=== PATIENT | female | born 1970 | race African-American/Black ===

== ENCOUNTER 2024-12-18 05:55 | Emergency (ER) | payer BC, SELFPAY ==
--- NOTE | ~2024-12-18 | XR_ITS ---
Portable chest x-ray Comparison: None Clinical History: Dyspnea Findings: Possible minimal bibasilar interstitial edema. No other consolidation or pleural effusion. Cardiomediastinal silhouette is unremarkable. Bones and soft tissues are unremarkable. Impression: Possible minimal bibasilar interstitial edema. Reviewed, dictated and finalized at [facility]. Impression: Possible minimal bibasilar interstitial edema.
--- NOTE | 2024-12-18 05:56 | ECG_ITS ---
Test Date: 2024-12-18 06:14:24 Measurements Intervals [place] Rate: 104 P: 62 AR: 178 QRS: 73 QRSD: 85 T: 71 QT: 336 QTc: 442 Interpretive Statements SINUS TACHYCARDIA MINIMAL VOLTAGE CRITERIA FOR LVH, CONSIDER NORMAL VARIANT [MEETS CRITERIA IN ONE OF: R(aVL), S(V1), R(V5), R(V5/V6)+S(V1)] NONSPECIFIC ST & T-WAVE ABNORMALITY ABNORMAL RHYTHM ECG No previous ECG available for comparison Electronically Signed On 12-18-2024 11:37:11 CDT by Alexander Masters M.D.
[2024-12-18 06:04] VITALS: PULSE 101; RESP 24; TEMP 37.6; O2SAT 97
[2024-12-18 06:07] VITALS: BP 159/129
--- NOTE | 2024-12-18 06:18 | ED_ITS ---
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 Feels like she can not catch her breath especially when she is walking around. <Aminah Momin MD - Last Filed: 12/18/24 06:39> Related Data Allergies/Adverse Reactions: Allergies Allergy/AdvReac Type Severity Reaction Status Date / Time Penicillins Allergy Severe Anaphylaxis Verified 12/18/24 05:56 morphine Allergy Intermediate Rash Verified 12/18/24 06:08 <Aminah Momin MD - Last Filed: 12/18/24 06:39> Review of Systems 2 Review of Systems: All systems reviewed & are unremarkable except as noted in HPI and below <Aminah Momin MD - Last Filed: 12/18/24 06:39> Exam 2 Narrative: EXAMINATION OF ORGAN SYSTEMS/BODY AREAS: Constitutional: Vital signs per nursing GENERAL: Dyspneic while walking HEAD: Normal with no signs of head trauma. EYES: EOMI, conjunctiva normal ENT: Hearing grossly intact LUNGS: Becomes slightly dyspneic while walking, can speak in full sentences but panting afterwards, some end-expiratory wheezing and diminished lung sounds bilaterally. HEART: [Regular rate and rhythm] ABD: [Soft], [nontender to palpation] EXT: Normal range of motion SKIN: [No rashes or lesions.] NEURO: [Alert and oriented x 3. No gross focal sensory or strength deficits.] PSYCH: Normal affect <Aminah Momin MD - Last Filed: 12/18/24 06:39> Course Vital Signs Vital signs: Vital Signs Temperature 99.6 F 12/18/24 06:04 Pulse Rate 101 H 12/18/24 06:04 Respiratory Rate 24 H 12/18/24 06:04 Pulse Oximetry 97 12/18/24 06:04 Oxygen Delivery Room Air 12/18/24 06:04 Temperature 97.9 F 12/18/24 07:34 Pulse Rate 110 H 12/18/24 07:34 Respiratory Rate 20 12/18/24 07:34 Blood Pressure 155/93 H 12/18/24 07:34 Pulse Oximetry 100 12/18/24 07:44 Oxygen Delivery Room Air 12/18/24 07:44 <Aminah Momin MD - Last Filed: 12/18/24 06:39> Vital Signs Temperature 99.6 F 12/18/24 06:04 Pulse Rate 101 H 12/18/24 06:04 Respiratory Rate 24 H 12/18/24 06:04 Pulse Oximetry 97 12/18/24 06:04 Oxygen Delivery Room Air 12/18/24 06:04 Temperature 97.9 F 12/18/24 07:34 Pulse Rate 110 H 12/18/24 07:34 Respiratory Rate 20 12/18/24 07:34 Blood Pressure 155/93 H 12/18/24 07:34 Pulse Oximetry 100 12/18/24 07:44 Oxygen Delivery Room Air 12/18/24 07:44 <Janna Bacon III, DO - Last Filed: 12/18/24 17:01> MDM - SOB/Dyspnea MDM Narrative Medical decision making narrative: ED COURSE AND MEDICAL DECISION MAKING: This 54 year old patient presents with symptoms most suggestive of viral upper respiratory tract infection. She does appear out of breath here, with slightly diminished lung sounds and expiratory wheezing bilaterally. Does have history of potential asthma/COPD and was prior smoker. Patient is treated symptomatically with Tylenol, breathing treatments. Steroids given. Will obtain swabs and chest x-ray. EKG on my independent interpretation limited by patient being unable to sit still due to coughing, does have sinus tachycardia with rate 104, OR 178, QRS 85, QTC 442, normal axis, no obvious ST elevations or depressions or signs of acute arrhythmia or ischemia CXR on my independent interpretation does not show any obvious consolidation, pneumothorax, or cardiomegaly. Will plan for likely discharge after finishing breathing treatments, if patient is feeling better. Signed out to home ER physician pending re-evaluation and labs. <Aminah Momin MD - Last Filed: 12/18/24 06:39> ED COURSE AND MEDICAL DECISION MAKING: This 54 year old patient presents with symptoms most suggestive of viral upper respiratory tract infection. She does appear out of breath here, with slightly diminished lung sounds and expiratory wheezing bilaterally. Does have history of potential asthma/COPD and was prior smoker. Patient is treated symptomatically with Tylenol, breathing treatments. Steroids given. Will obtain swabs and chest x-ray. EKG on my independent interpretation limited by patient being unable to sit still due to coughing, does have sinus tachycardia with rate 104, OR 178, QRS 85, QTC 442, normal axis, no obvious ST elevations or depressions or signs of acute arrhythmia or ischemia CXR on my independent interpretation does not show any obvious consolidation, pneumothorax, or cardiomegaly. Will plan for likely discharge after finishing breathing treatments, if patient is feeling better. Signed out to home ER physician pending re-evaluation and labs. work up unremarkable other than rsv pos pt better after ativan. home on prednisone and ativan <Janna Bacon III, DO - Last Filed: 12/18/24 17:01> Lab Data Result diagrams: 12/18/24 07:06 12/18/24 07:06 <Aminah Momin MD - Last Filed: 12/18/24 06:39> Labs: Lab Results 12/18/24 12/18/24 Range/Units 06:10 07:06 WBC 8.9 (4.5-10.0) K/mm3 RBC 4.65 (4.2-5.4) M/mm3 Hgb 16.1 H (12.0-15.0) g/dL Hct 48.4 H (37.0-47.0) % MCV 104.1 H (80-100) fl MCH 34.6 H (26-34) pg MCHC 33.3 (32-36) g/dl RDW 13.0 (11.5-14.5) % Plt Count 226 (150-375) k/mm3 MPV 9.8 (7.4-10.4) fl Immature Gran % (Auto) 0.6 H (0-0.5) % Neut % (Auto) 76.0 H (45.5-73.1) % Lymph % (Auto) 14.0 L (18.3-44.2) % Butts % (Auto) 8.5 (2.6-8.5) % Eos % (Auto) 0.3 (0-4.4) % Baso % (Auto) 0.6 (0.2-1.2) % Lymph # (Auto) 1.25 (0.9-3.2) K/mm3 Butts # (Auto) 0.8 H (0.1-0.6) K/mm3 Eos # (Auto) 0.0 (0-0.3) K/mm3 Baso # (Auto) 0.1 (0.0-0.1) K/mm3 Abs Immat Gran (auto) 0.05 H (0.00-0.031) K/mm3 Absolute Neuts (auto) 6.8 H (1.3-6.7) K/mm3 Absolute Nucleated RBC 0.000 (0.0-0.012) K/mm3 Nucleated RBC % 0.0 (0.0-0.2) % Sodium 138 (137-145) mmol/L Potassium 3.6 (3.4-5.0) mmol/L Chloride 100 (98-107) mmol/L Carbon Dioxide 30 (22-30) mmol/L Anion Gap 8 (4-12) mmol/L BUN 14 (7-17) mg/dL Creatinine 0.75 (0.7-1.0) mg/dL Estim Creat Clear Calc 99 ml/min Estimated GFR > 60 (59 - ) Glucose 148 H (65-110) mg/dL Calcium 9.9 (8.4-10.2) mg/dL Influenza A (RT-PCR) Negative (Negative) Influenza B (RT-PCR) Negative (Negative) RSV (RT-PCR) Positive A (Negative) SARS-CoV-2 RNA (RT-PCR) Negative (Negative) <Aminah Momin MD - Last Filed: 12/18/24 06:39> Lab Results 12/18/24 12/18/24 Range/Units 06:10 07:06 WBC 8.9 (4.5-10.0) K/mm3 RBC 4.65 (4.2-5.4) M/mm3 Hgb 16.1 H (12.0-15.0) g/dL Hct 48.4 H (37.0-47.0) % MCV 104.1 H (80-100) fl MCH 34.6 H (26-34) pg MCHC 33.3 (32-36) g/dl RDW 13.0 (11.5-14.5) % Plt Count 226 (150-375) k/mm3 MPV 9.8 (7.4-10.4) fl Immature Gran % (Auto) 0.6 H (0-0.5) % Neut % (Auto) 76.0 H (45.5-73.1) % Lymph % (Auto) 14.0 L (18.3-44.2) % Butts % (Auto) 8.5 (2.6-8.5) % Eos % (Auto) 0.3 (0-4.4) % Baso % (Auto) 0.6 (0.2-1.2) % Lymph # (Auto) 1.25 (0.9-3.2) K/mm3 Butts # (Auto) 0.8 H (0.1-0.6) K/mm3 Eos # (Auto) 0.0 (0-0.3) K/mm3 Baso # (Auto) 0.1 (0.0-0.1) K/mm3 Abs Immat Gran (auto) 0.05 H (0.00-0.031) K/mm3 Absolute Neuts (auto) 6.8 H (1.3-6.7) K/mm3 Absolute Nucleated RBC 0.000 (0.0-0.012) K/mm3 Nucleated RBC % 0.0 (0.0-0.2) % Sodium 138 (137-145) mmol/L Potassium 3.6 (3.4-5.0) mmol/L Chloride 100 (98-107) mmol/L Carbon Dioxide 30 (22-30) mmol/L Anion Gap 8 (4-12) mmol/L BUN 14 (7-17) mg/dL Creatinine 0.75 (0.7-1.0) mg/dL Estim Creat Clear Calc 99 ml/min Estimated GFR > 60 (59 - ) Glucose 148 H (65-110) mg/dL Calcium 9.9 (8.4-10.2) mg/dL Influenza A (RT-PCR) Negative (Negative) Influenza B (RT-PCR) Negative (Negative) RSV (RT-PCR) Positive A (Negative) SARS-CoV-2 RNA (RT-PCR) Negative (Negative) <Janna Noe Bacon III, DO - Last Filed: 12/18/24 17:01> Discharge Plan Discharge Clinical Impression: Acute bronchitis, Upper respiratory infection, Acute bronchitis due to respiratory syncytial virus <Aminah Momin MD - Last Filed: 12/18/24 06:39> Patient Disposition: Home, Self-Care <Aminah Momin MD - Last Filed: 12/18/24 06:39> Condition: Stable <Aminah Momin MD - Last Filed: 12/18/24 06:39> Instructions: Antibiotic Form, Acute Bronchitis (ED), RSV (Respiratory Syncytial Virus) Infection (ED) <Aminah Momin MD - Last Filed: 12/18/24 06:39> Additional Instructions: 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 <Aminah Momin MD - Last Filed: 12/18/24 06:39> Patient Language: [place]i <Aminah Momin MD - Last Filed: 12/18/24 06:39> Prescriptions: New prednisone 20 mg tablet 40 mg PO DAILY 5 Days Qty: 10 0RF acetaminophen [Tylenol Extra Strength] 500 mg tablet 1,000 mg PO Q6H PRN (Reason: pain) Qty: 50 0RF albuterol sulfate 90 mcg/actuation HFA aerosol inhaler 2 puff inhalation QID PRN (Reason: shortness of breath or wheezing) Qty: 8.5 0RF fluticasone propionate [Allergy Relief (fluticasone)] 50 mcg/actuation spray,suspension 1 spray intranasal DAILY Qty: 16 0RF Rx Instructions: administer into each nostril prednisone 50 mg tablet 50 mg PO DAILY Qty: 4 0RF lorazepam [Ativan] 1 mg tablet 1 mg PO BID PRN (Reason: anxiety) Qty: 7 0RF <Aminah Momin MD - Last Filed: 12/18/24 06:39> Follow-up/Referrals: PHYSICIAN NOT ON STAFF,NONSTAFF [Non-Staff] - <Aminah Momin MD - Last Filed: 12/18/24 06:39> Stand Alone Forms: Work/School Release IP <Aminah Momin MD - Last Filed: 12/18/24 06:39>
[2024-12-18] MEDS: ALBUTEROL SULFATE NEB 2.5 MG/3 ML INH 10 MG INHALATION (06:19)
[2024-12-18] MEDS: predniSONE 20 MG TABLET 40 MG PO (06:22)
[2024-12-18] MEDS: ACETAMINOPHEN 325 MG TABLET 650 MG PO (06:29)
[2024-12-18 06:56] LABS: Influenza A QL RT-PCR Negative (Negative); Influenza B QL RT-PCR Negative (Negative); RSV RNA, RT-PCR Positive (Negative); SARS-CoV-2 RNA PCR Negative (Negative)
[2024-12-18 07:15] LABS: Basophils Absolute Auto 0.1 K/mm3 (0.0-0.1); Basophils Percent Auto 0.6 % (0.2-1.2); Eosinophils Percent Auto 0.3 % (0-4.4); Hematocrit 48.4 % (37.0-47.0); Hemoglobin 16.1 g/dL (12.0-15.0); Immature Granulocyte Absolute 0.05 K/mm3 (0.00-0.031); Immature Granulocyte Percent A 0.6 % (0-0.5); Lymphocytes Absolute Auto 1.25 K/mm3 (0.9-3.2); Mean Corpuscular HGB Conc 33.3 g/dl (32-36); Mean Corpuscular Hemoglobin 34.6 pg (26-34); Mean Corpuscular Volume 104.1 fl (80-100); Mean Platelet Volume 9.8 fl (7.4-10.4); Monocytes Absolute Auto 0.8 K/mm3 (0.1-0.6); Monocytes Percent Auto 8.5 % (2.6-8.5); Neutrophils Absolute Auto 6.8 K/mm3 (1.3-6.7); Platelet Count Result 226 k/mm3 (150-375); Red Blood Count 4.65 M/mm3 (4.2-5.4); White Blood Count 8.9 K/mm3 (4.5-10.0)
[2024-12-18 07:29] LABS: Anion Gap 8 mmol/L (4-12); Blood Urea Nitrogen 14 mg/dL (7-17); Calcium 9.9 mg/dL (8.4-10.2); Carbon Dioxide 30 mmol/L (22-30); Chloride 100 mmol/L (98-107); Estimated CRCL calculation 99 ml/min; Estimated Glomerular Filt Rate > 60; Glucose 148 mg/dL (65-110); Potassium 3.6 mmol/L (3.4-5.0); Sodium 138 mmol/L (137-145)
[2024-12-18] MEDS: LORazepam INJ (*CRX) 2 MG/ML VIAL 0.5 MG IV PUSH (07:30)
[2024-12-18 07:34] VITALS: BP 155/93; PULSE 110; RESP 20; TEMP 36.6; O2SAT 99
[2024-12-18 07:44] VITALS: O2SAT 100
--- NOTE | 2024-12-18 07:47 | PC.NURSE ---
Assumed care of pt. Pt anxious crying, on the phone with family. Pt medicated per orders. Reviewed with pt treatment received, instructed to take slow deep breathes while receiving resp treatment. Repositioned for comfort.
--- OUTSIDE RECORDS SUMMARY | 2024-12-18 07:59 | XMS_ITS | Clinical Summary ---
Author Organization [facility] Address [address] [place] [id number] Care Team Providers Care Microstrategy Reports Developer Name Role Phone Boyd Sarabia MD Primary Care Provider [phone] Allergies Active Allergy Reactions Criticality Noted Date Comments Morphine ANAPHYLAXIS High 11/18/2023 Penicillins ANAPHYLAXIS High 11/18/2023 Medications Medication Sig Dispensed Refills Start Date End Date Status ALPRAZolam (Xanax) 0.25 MG tablet Take 2 tablets by mouth 3 times daily as needed for Anxiety. 21 tablet 11/19/2023 Active amLODIPine (NORVASC) 10 MG tablet Take 1 tablet by mouth daily. 60 tablet 11/19/2023 Active lisinopril (ZESTRIL) 20 MG tablet Take 1 tablet by mouth daily. 60 tablet 11/19/2023 Active metoPROLOL tartrate (LOPRESSOR) 50 MG tablet Take 1 tablet by mouth in the morning and 1 tablet in the evening. 120 tablet 11/19/2023 Active pantoprazole (PROTONIX) 40 MG tablet Take 1 tablet by mouth daily. 60 tablet 11/19/2023 Active ALPRAZolam (XANAX) 0.5 MG tablet Take 0.5 mg by mouth. 07/12/2023 Active amLODIPine (NORVASC) 10 MG tablet Take 10 mg by mouth daily. 07/12/2023 Active lisinopril (ZESTRIL) 20 MG tablet Take 20 mg by mouth daily. 07/25/2023 Active metoPROLOL tartrate (LOPRESSOR) 50 MG tablet Take 50 mg by mouth in the morning and 50 mg in the evening. 07/25/2023 Active pantoprazole (PROTONIX) 40 MG tablet Take 40 mg by mouth daily. 07/08/2023 Active amLODIPine (NORVASC) 5 MG tablet Take 5 mg by mouth daily. 07/08/2023 Active hydrALAZINE (APRESOLINE) 10 MG tablet Take 10 mg by mouth. 07/25/2023 Active Surgical History Surgery Date Site/Laterality Comments HYSTERECTOMY Medical History Medical History Date Comments Essential (primary) hypertension Anxiety Ulcerative colitis (CMD) Fibroids Social History Tobacco Use Types Packs/Day Years Used Date Smoking Tobacco: Former Cigarettes Tobacco Cessation:Counseling Given: Not Answered Alcohol Use Standard Drinks/Week Comments Yes 0 (1 standard drink = 0.6 oz pur e alcohol) Inadequate Housing Answer Date Recorded Social Determinants: Housing (Overall Score Help er) 0 11/19/2023 Interpersonal Safety Answer Date Record ed How often does anyone, ahmet maher family and friends, physically hurt you? Never 11/19/2023 How often does anyone, ahmet maher family and friends, insult or talk down to you? Never 11/19/2023 How often does anyone, ahmet maher family and friends, threaten you with harm? Never 11/19/2023 How often does anyone, ahmte maher family and friends, scream or curse at you? Never 11/19/2023 Sex and Gender Information Value Date Recorded Sex Assigned at Not on file Gender Identity Not on file Sexual Orientation Not on file Job Start Date Occupation Industry Not on file Not on file Not on file Obstetrics History Last Filed Vital Signs Vital Sign Reading Time Taken Comments Blood Pressure 182/140 11/19/2023 11:28 AM SPECIAL DUTY NURSE Pulse 73 11/19/2023 11:28 AM SPECIAL DUTY NURSE Temperature 36.8 C (98.2 F) 11/18/2023 8:47 PM SPECIAL DUTY NURSE Respiratory Rate 20 11/19/2023 11:28 AM SPECIAL DUTY NURSE Oxygen Saturation 100% 11/19/2023 11:28 AM SPECIAL DUTY NURSE Inhaled Oxygen Concentration - - Weight - - Height - - Body Mass Index - - Plan of Treatment Health Maintenance Due Date Last Done Comments Depression Screening 1983 DTaP/Tdap/Td Vaccine (1 - Tdap) 1990 Hepatitis B Vaccine (1 of 3 - 19+ 3-dose series) 1990 Pneumococcal Vaccine 50+ (1 of 2 - PCV) 1990 Breast Cancer Screening 2011 CT Colonography 2016 Cologuard 2016 Colonoscopy 2016 Colorectal Cancer Screening 2016 Fecal Occult Blood 2016 Sigmoidoscopy 2016 Shingles Vaccine (1 of 2) 2021 COVID-19 Vaccine (2023-2 5 season) 2024 Influenza Vaccine (#1) 2024 HPV Vaccine Aged Out No longer eligi ble based on patient's age to complete this topic Hepatitis A Vaccine Aged Out No longe r eligible based on patient's age to complete this topic Meningococcal Serogroup B Vaccine Aged Out No longer eligible based on patient's age to complete this topic Meningococcal Vaccine Aged Out No wesley sridhar eligible based on patient's age to complete this topic Care Teams Microstrategy Reports Developer Relationship Specialty Start Date End Date Boyd Sarabia MD [id number] [place] [address] PCP - General Family Practice 11/18/23
--- OUTSIDE RECORDS SUMMARY | 2024-12-18 07:59 | XMS_ITS | Clinical Summary ---
Author Organization [facility] Address [address] [place] [address] Care Team Providers Care Bulk Tank Car Unloader Name Role Phone Boyd Gardner MD Primary Care Provider [phone] Chrissy Gavin MD Unavailable [phone] Allergies Active Allergy Reactions Criticality Noted Date Comments Fluoxetine Other (See comments) Reaction: shaking, Hydrocodone-Acetamino phen Hives,Nausea Only Medium 04/02/2014 Morphine Hives,Anaphylaxis High 04/24/2013 Pt previously tolerated hydrocodone Opioids - Morphine Analogues Anaphylaxis High 04/02/2014 Paroxetine Nausea only,Vomiting Reaction: Nausea, Vomiting, Penicillin G Anaphylaxis,Hives High 05/30/2013 Penicillins Hives,Other (See comments),Swelling High 07/03/2009 Reaction: Reaction: Hives, , Medications albuterol HFA (PROVENTIL HFA,VENTOLIN HFA,PROAIR HFA) 90 mcg/actuation inhalerIndicatio ns:Bronchospasm Prevention Inhale 2 puffs every 6 (six) hours as needed for wheezing 1 each 02/28/20 24 Active hydrALAZINE (APRESOLINE) 10 mg tabletIndication s:hypertension Take 1 tablet (10 mg total) by mouth 3 (three) times a day 90 tablet 02/28/20 24 Active meloxicam (MOBIC) 7.5 mg tablet Take 1 tablet (7.5 mg total) by mouth daily 30 tablet 11 02/29/20 24 025 Active methocarbamoL (ROBAXIN) 500 mg tablet Take 1 tablet (500 mg total) by mouth 2 (two) times a day 20 tablet 02/29/20 24 Active rivaroxaban (XARELTO) 15 mg tablet Take 1 tablet (15 mg total) by mouth 2 (two) times a day for 4 doses 4 tablet 02/29/20 24 Active amLODIPine (NORVASC) 5 mg tabletIndication s:Essential hypertension Take 1 tablet (5 mg total) by mouth daily 90 tablet 3 04/06/20 24 Active allopurinoL (ZYLOPRIM) 100 mg tabletIndication s:Elevated uric acid in blood Take 1 tablet (100 mg total) by mouth daily 90 tablet 3 04/06/20 24 025 Active hydrOXYzine (ATARAX) 25 mg tablet Take 1 tablet (25 mg total) by mouth 2 (two) times a day as needed for anxiety 30 tablet 12/05/19 25 025 Active ALPRAZolam (XANAX) 0.5 mg tabletIndication s:Anxiety Take 1 tablet (0.5 mg total) by mouth 3 (three) times a day as needed for anxiety 90 tablet 12/05/19 25 Active metoprolol tartrate (LOPRESSOR) 50 mg immediate release tabletIndication s:Essential hypertension TAKE 1 TABLET(50 MG) BY MOUTH TWICE DAILY 180 tablet 12/05/19 25 Active lisinopril-hydro CHLOROthiazide (ZESTORETIC) 20-12.5 mg per tabletIndication s:hypertension Take 1 tablet by mouth daily 90 tablet 12/05/19 25 025 Active lisinopril-hydro CHLOROthiazide (ZESTORETIC) 20-12.5 mg per tabletIndication s:hypertension Take 1 tablet by mouth daily 90 tablet 3 07/03/20 24 025 Discontinued(Re order) metoprolol tartrate (LOPRESSOR) 50 mg immediate release tabletIndication s:Essential hypertension Take 1 tablet (50 mg total) by mouth 2 (two) times a day 180 tablet 3 07/03/20 24 025 Discontinued(Re order) hydrOXYzine (ATARAX) 25 mg tablet Take 1 tablet (25 mg total) by mouth 2 (two) times a day as needed for anxiety 30 tablet 07/04/20 24 025 Discontinued(Re order) ALPRAZolam (XANAX) 0.5 mg tabletIndication s:Anxiety Take 1 tablet (0.5 mg total) by mouth 3 (three) times a day as needed for anxiety 90 tablet 10/03/20 24 025 Discontinued(Re order) lisinopril-hydro CHLOROthiazide (ZESTORETIC) 20-12.5 mg per tabletIndication s:hypertension Take 1 tablet by mouth daily 60 tablet 12/05/19 25 025 Discontinued metoprolol tartrate (LOPRESSOR) 50 mg immediate release tabletIndication s:Essential hypertension Take 1 tablet (50 mg total) by mouth 2 (two) times a day 120 tablet 12/05/19 25 025 Discontinued Active Problems Problem Noted Date Diagnosed Date Screening for colon cancer 04/06/2024 Elevated uric acid in blood 04/06/2024 Alcohol abuse 07/22/2023 Assessment & Plan (07/22/2023 4:49 PM CDT): Assessment = Patient reported that she drinks a bottle of wine daily at home. She states she has been doing that for the past year. She states she knows its bad for her but it helps her decompress. Her last drink being yesterday puts her at risk of alcohol withdrawal Plan - Librium taper - Warm handoff consulted History of cardiac cath 07/22/2023 Elevated liver enzymes 07/20/2021 Class 1 obesity due to exces s calories with serious comorbidity and body mass index (BMI) of 34.0 to 34.9 in adult 07/18/2021 Assessment & Plan (04/06/2024 11:30 PM CDT): BMI Follow-up includes: nutrition counseling, exercise counseling, and education provided. Primary hypertension 07/18/2021 Colitis 07/17/2021 Lower abdominal pain 05/07/2021 Acute stress reaction minerva g mixed disturbance of emotion and conduct 09/09/2020 Assessment & Plan (09/09/2020 9:00 PM PUBLICATIONS DISTRIBUTION CLERK): PATIENT STATES SHE COULD NOT TOLERATE CYMBALTA IN THE PAST. PATIENT IS TO CONTINUE WITH ALPRAZOLAM NEEDED. Calculus of gallbladder and bile duct w/o cholecystitis or obstruction 10/18/2019 Overview (10/18/2019): Added automatically from request for surgery [id number] Anxiety 09/06/2019 Assessment & Plan (09/06/2019 10:15 PM PUBLICATIONS DISTRIBUTION CLERK): Patient has had multiple episodes of panic attacks and has been using alprazolam given to her in the emergency room on as needed basis. Patient has run out of medication and continues to experience intermittent panic attacks. Discussed using SSRIs for preventative care of her anxiety. Patient will however try on as needed basis to use alprazolam. Made patient aware of the addictive nature of alprazolam with long-term use. Screening for breast cancer 09/06/2019 Essential hypertension 12/07/2018 Assessment & Plan (04/06/2024 11:29 PM CDT): Blood Pressure Follow-up: Lifestyle modifications education provided on sodium reduction, increase physical activity, reduce alcohol consumption and weight reduction. Patient is to continue with amlodipine, lisinopril and metoprolol. Assessment & Plan (07/22/2023 4:53 PM CDT): Assessment = Patient has a pmh of Htn treated with amlodipine, lisnopril and metoprolol Plan - Continue home meds Assessment & Plan (12/03/2022 8:58 PM PUBLICATIONS DISTRIBUTION CLERK): Blood Pressure Follow-up: Lifestyle modifications education provided on sodium reduction, increase physical activity, reduce alcohol consumption and weight reduction. Patient is to continue with amlodipine, lisinopril and metoprolol. Assessment & Plan (05/07/2021 7:54 PM CDT): Blood Pressure Follow-up: Lifestyle modifications education provided on sodium reduction, increase physical activity, reduce alcohol consumption and weight reduction. Patient recently changed jobs and does not have insurance coverage and may not be able to afford all her Meds. Assessment & Plan (03/19/2020 7:23 PM CDT): Patient to take amlodipine daily. Pt to decrease salt intake and exercise. Assessment & Plan (09/06/2019 10:12 PM PUBLICATIONS DISTRIBUTION CLERK): Patient to continue with her blood pressure Meds. Also discussed using low-salt diet and beginning an exercise regimen. Assessment & Plan (12/07/2018 4:21 PM PUBLICATIONS DISTRIBUTION CLERK): Ora felt patient's lisinopril amlodipine and metoprolol. Patient advised to go on low-salt diet and to exercise to reduce blood pressure. Acute URI of multiple sites 12/07/2018 Assessment & Plan (12/07/2018 4:27 PM PUBLICATIONS DISTRIBUTION CLERK): The patient to take modg-emi-gmdhyzs Claritin and Mucinex for the symptoms.if symptoms worsen patient is to call for antibiotic prescription. Recommended the flu vaccine but patient stays he has opted out of it because her parent always gets sick when she received the vaccine. Non-intractable vomiting with nausea 12/07/2018 Right upper quadrant abdominal pain 12/07/2018 Assessment & Plan (12/07/2018 4:20 PM PUBLICATIONS DISTRIBUTION CLERK): MR for patient to have [facility] and General surgery for possible cholecystectomy. Patient to continue with Zofran for nausea and vomiting Chest wall pain 09/05/2018 Assessment & Plan (07/22/2023 4:52 PM CDT): Assessment = Patient initially in the ED has some chest wall pain. EKG was normal. She did have a previous history of a heart cath. Due to her shortness of breath an Echo was ordered to establish baseline and to rule out cardiac etiology of Shortness of breath. Plan - Echo results pending Right-sided thoracic back pain 09/05/2018 Tobacco dependence syndrome 02/24/2014 Overview (01/13/2017): TOBACCO USE DISORDER Assessment & Plan (07/22/2023 4:55 PM CDT): Assessment = Patient has a group home history of smoking. She smoked a pack in a couple of days. After this shortness of breath incident she states she strongly wants to quit. Plan - Nicotine patch prn - Warm handoff consulted Assessment & Plan (12/07/2018 4:24 PM PUBLICATIONS DISTRIBUTION CLERK): Discussed that tobacco cessation patient has tried in the past to quit and during her and numbness going to make every attempt to stop smoking. Anxiety state 02/24/2014 Overview (01/15/2017): ANXIETY STATE NOS Assessment & Plan (07/22/2023 4:51 PM CDT): Assessment = Patient has a pmh of anxiety but is not on any medication at home. Plan - PRN hydroxyzine Ovarian torsion 04/24/2013 Adnexal mass 03/03/2013 Other and unspecified ovarian cyst 08/21/2009 Resolved Problems Problem Noted Date Diagnosed Date Resolved Date Acute hypoxic respiratory failure 07/22/2023 07/25/2023 Assessment & Plan (07/22/2023 4:46 PM CDT): Assessment = Patient presented to ED with hypoxia with her O2 range around mid 80's requiring supplemental oxygen. She was admitted while on 5 L O2 nasal cannula. She has no history of diagnosed COPD but due to her chronic history of smoking she was initially treated for a COPD exacerbation with the initiation of azithromycin, steriods and duonebs. Plan - Wean down oxygen to room air - Spirometry test - Continue Duonebs and Prednisone taper starting tomorrow Vomiting 04/17/2019 11/30/2019 Calculus of gallbladder with out cholecystitis without obstruction 12/07/2018 11/30/2019 Assessment & Plan (09/06/2019 10:14 PM PUBLICATIONS DISTRIBUTION CLERK): Patient was seen in June in the emergency room for abdominal pain and was referred to general surgeon but due to illness of her son she neglected to keep that appointment. Will refer patient to general surgeon of her choice for possible cholecystectomy. Assessment & Plan (12/07/2018 4:29 PM PUBLICATIONS DISTRIBUTION CLERK): Reviewed ultrasound report from emergency room which indicated next cholelithiasis without cholecystitis there was mild gallbladder wall thickening. Calculus of gallbladder with out cholecystitis without obstruction 10/20/2018 11/30/2019 Tobacco use 06/06/2018 11/30/2019 Immunizations Immunization Administration Dates Next Due Influenza, Unspecified 06/25/2023(Deferr ed: Patient Refused),07/11/2022(Deferred: Patient Refused),06/11/2021(Deferred: Patient Refused),09/09/2020(Deferred: Patient Refused) Surgical History Surgery Date Site/Laterality Comments OTHER SURGICAL HISTORY 10/11/1997 - 10/10/1998 D&C SECTION 10/11/1999 - 10/10/2000 section HYSTERECTOMY OOPHERECTOMY RIGHT OOPHORECTOMY 10/11/2012 - 10/10/2013 Right SECTION Medical History Medical History Date Comments Uterine fibroid Miscarriage History of cardiac cath Hypertension Anxiety GERD (gastroesophageal reflux disease) Gallbladder & bile duct stone with obstruction Uterine fibroid COPD exacerbation (HCC) 07/22/2023 Family History Medical History Relation Name Comments Hypertension Father Faizan Levy Cancer Father's Sister Luz Tyler Cancer Mother Veena Garay Diabetes Mother Veena Garay Stroke Mother Veena Garay Relation Name Status Comments Father Faizan Levy Father's Sister Luz Tyler Mother Veena Garay Alive Social History Tobacco Use Types Packs/Day Years Used Date Smoking Tobacco: Some Days Cigarettes 0.3 30 Smokeless Tobacco: Never Tobacco Cessation:Ready to Q uit: Not Asked; Counseling Given: Not Answered Comments:only cocktails Alcohol Use Standard Drinks/Week Comments Yes 0 (1 standard drink = 0.6 oz pur e alcohol) occasionally AUDIT-C Answer Date Recorded Q1: How often do you have a drink containing alcohol? 4 or more times a week 04/06/2024 Q2: How many drinks containi ng alcohol do you have on a typical day when you are drinking? 1 or 2 Q3: How often do you have si x or more drinks on one occasion? Never 04/06/2024 PHQ-2 Answer Date Recorded PHQ-2 Total Score (If total score is 3 or more points, staff should administer the PHQ-9) 2 04/06/2024 PHQ-9 Answer Date Recorded PHQ-9 Total Score 4 04/06/2024 Personal Safety Answer Date Recorded Have you ever been in or are you currently in a harmful physical or emotional relationship or is someone making you feel afraid or unsafe? Denies 02/28/2024 Comments No Sex and Gender Information Value Date Recorded Sex Assigned at Not on file Legal Sex Female 11:48 PM PUBLICATIONS DISTRIBUTION CLERK Gender Identity Not on file Sexual Orientation Not on file Obstetrics History Last Filed Vital Signs Vital Sign Reading Time Taken Comments Blood Pressure 174/101 04/06/2024 1:35 PM CDT Pulse 68 04/06/2024 12:55 PM CDT Temperature 36.6 C (97.8 F) 04/06/2024 12:55 PM CDT Respiratory Rate 18 04/06/2024 12:5 5 PM CDT Oxygen Saturation 96% 04/06/2024 12: 55 PM CDT Inhaled Oxygen Concentration - - Weight 89.3 kg (196 lb 14.4 oz) 024 12:55 PM CDT Height 160 cm (5' 3 ) 04/06/2024 12:55 PM CDT Body Mass Index 34.88 04/06/2024 12:55 PM CDT Plan of Treatment Scheduled Procedures Name Priority Associated Diagnoses Date/Ti me COLONOSCOPY Screening for colon cancer Health Maintenance Due Date Last Done Comments Breast Cancer Screening-Mammogram 1971 Colon Cancer Screening-Colonoscopy 1971 Hepatitis C Screening 1971 DTaP/Tdap/Td Vaccine (1 - Tdap) 1982 Hepatitis B Screening 1989 Regular Well Visit/Exam 18-64 1989 Influenza Vaccine (#1) 2024 Pneumococcal vaccine <65 (1 of 2 - PCV) 03/22/2025 Postponed from 1990 (Patient declined, but will receive in the future) Depression Screening 04/06/2025 04/06/2024, 04/06/2024, 12/03/2022, Additional history exists Zoster Vaccine (1 of 2) 04/06/2025 Post poned from 2021 (Patient declined, but will receive in the future) Insurance [facility] Advance Directives For more information, please contact: [phone] * Full Code (Latest Code Status on File) Date Activated Date Inactivated Comments 07/22/2023 11:32 AM 07/25/2023 6:04 PM * Full Code Date Activated Date Inactivated Comments 07/17/2021 6:54 PM 07/20/2021 10:38 PM * Full Code Date Activated Date Inactivated Comments 10/27/2019 2:09 PM 10/29/2019 8:09 PM Care Teams Bulk Tank Car Unloader Relationship Specialty Start Date End Date Boyd Gardner MD PCP - General Family Medicine 12/07/18 Chrissy Gavin MD Consulting Physician Gastroenterology 07/20/21
--- OUTSIDE RECORDS SUMMARY | 2024-12-18 08:00 | XMS_ITS | Clinical Summary ---
Author Organization [facility] Address [address] [place] [address] Care Team Providers Care Appeals Board Referee Name Role Phone Boyd Gardner MD Primary Care Provider [phone] Source Comments [facility],non-owned Affiliates and Associated Physician Practices is amultiple site organization consisting of ambulatory clinics and hospital sitesin [place], [place]. This disclosure is being madepursuant to the Care Everywhere program and may not contain all information available regarding this patient. Last updated 18.[facility] [employer] Allergies Active Allergy Reactions Criticality Noted Date Comments Morphine Urticaria Medium 04/24/2013 Pt previously tolerated hydrocodone Penicillins Urticaria 08/21/2009 Medications * Be aware that medications may not be up to date on this document. Alwaysverify current medications with the patient. Medication Sig Dispensed Refills Start Date End Date Status HYDROcodone-acetamin ophen (NORCO) 5-325 MG tablet Take 1 tablet by mouth every 4 hours as needed 30 tablet 10/21/2018 Active ondansetron, disintegrating, (ZOFRAN ODT) 4 MG tablet Take 1 tablet by mouth every 6 hours as needed for Nausea/Vomiting Allow tablet to dissolve on the tongue 30 tablet 10/21/2018 Active metoprolol tartrate (LOPRESSOR) 25 MG tablet Take 1 tablet by mouth 2 times daily 60 tablet 1 10/21/2018 Active ibuprofen (Motrin) 400 MG tablet Take 1 (one) tablet by mouth every 6 hours as needed for Pain 30 tablet 10/10/2022 Active ALPRAZolam (Xanax) 0.5 MG tablet Take 1 (one) tablet by mouth 3 times daily as needed for Anxiety 15 tablet 10/10/2022 Active HYDROcodone-acetamin ophen ([place]oyers) 5-325 MG tabletIndications:Ar thralgia of right foot Take 1 (one) tablet by mouth every 6 hours as needed for Pain 12 tablet 11/04/2022 Active amLODIPine (Norvasc) 5 MG tablet Take 1 (one) tablet by mouth once daily 30 tablet 07/08/2023 Active lisinopril (Prinivil; Zestril) 10 MG tablet Take 1 (one) tablet by mouth once daily 30 tablet 07/08/2023 Active pantoprazole EC (Protonix) 40 MG tablet Take 1 (one) tablet by mouth once daily 30 tablet 07/08/2023 Active Active Problems Problem Noted Date Diagnosed Date Calculus of gallbladder with out cholecystitis without obstruction 10/20/2018 Ovarian torsion 04/24/2013 Other and unspecified ovarian cyst 08/21/2009 Family History Medical History Relation Name Comments Diabetes Father Diabetes Mother Cancer Other Relation Name Status Comments Father Mother Other Social History Tobacco Use Types Packs/Day Years Used Date Smoking Tobacco: Some Days Cigarettes 0.3 20 Smokeless Tobacco: Never Tobacco Cessation:Ready to Q uit: No; Counseling Given: Yes Comments:pt reports a few cigarettes per day Alcohol Use Standard Drinks/Week Comments Yes 0.8 (1 standard drink = 0.6 oz p ure alcohol) daily Sex and Gender Information Value Date Recorded Sex Assigned at Not on file Gender Identity Not on file Sexual Orientation Not on file Last Filed Vital Signs Vital Sign Reading Time Taken Comments Blood Pressure 191/118 07/08/2023 7:25 PM CDT Pulse 76 07/08/2023 7:25 PM CDT Temperature 37.1 C (98.7 F) 07/08/2023 7:25 PM CDT Respiratory Rate 18 07/08/2023 7:25 PM CDT Oxygen Saturation 93% 07/08/2023 7:25 PM CDT Inhaled Oxygen Concentration - - Weight 85.7 kg (189 lb) 07/08/2023 12:13 PM CDT Height 160 cm (5' 3 ) 07/08/2023 12:13 PM CDT Body Mass Index 33.48 07/08/2023 12:13 PM CDT Plan of Treatment Health Maintenance Due Date Last Done Comments COLOGUARD (AGES 45-75) - COL ON CA SCREENING 1971 COLON MONITORING 1971 COLONOSCOPY - COLON CA SCREENING 1971 CT COLONOGRAPHY - COLON CA SCREENING 1971 Colorectal Cancer Screening 1971 FIT - COLON CA SCREENING 1971 FLEX SIG - COLON CA SCREENING 1971 LIPID TESTING 1971 MAMMOGRAM 1971 HIV SCREENING 1986 HEPATITIS C SCREENING 04/09/1989 DTAP/TDAP/TD VACCINES (1 - Tdap) 1990 HEPATITIS B VACCINE (1 of 3 - 19+ 3-dose series) 1990 PNEUMOCOCCAL VACCINE 50+ (1 of 2 - PCV) 1990 PNEUMOCOCCAL VACCINE (1 of 2 - PCV) 1990 PAP SMEAR 05/15/2016 05/15/2013 ZOSTER VACCINE (1 of 2) 2021 COVID-19 VACCINE (1 - 2023-2 5 season) 2024 INFLUENZA VACCINE (#1) 2024 DEPRESSION SCREENING 10/11/2024 HIB VACCINE Aged Out No longer eligi ble based on patient's age to complete this topic HPV VACCINE Aged Out No longer eligi ble based on patient's age to complete this topic MENINGOCOCCAL (Group B) VACCINE Aged Out No longer eligible based on patient's age to complete this topic MENINGOCOCCAL VACCINE Aged Out No wesley sridhar eligible based on patient's age to complete this topic Procedures Procedure Name Priority Date/Time Associated Diagnosis Comments CYTOLOGY CERVICAL/VAG PAP SCREEN THIN PREP Routine 05/15/2013 3:44 PM CDT from Last 3 Months or Most Recently Relevant to Health Maintenance Results * CYTOLOGY CERVICAL/VAG SCREEN THIN PREP (05/15/2013 3:44 PM CDT) ThinPrep Pap See Scanned Report 05/29/2013 12:23 PM CDT [facility] Miscellaneous samples (specimen) PART OF UTERINE CERVIX / Unknown Collection / Unknown 05/15/2013 3:44 PM CDT 05/15/2013 4:07 PM CDT Ale Traylor MD LAB - PATHOLOGY/CYTO LOGY ORDERABLES [facility] [address] [place] [address] from Last 3 Months or Most Recently Relevant to Health Maintenance Advance Directives * Full Code (Latest Code Status on File) Date Activated Date Inactivated Comments 10/20/2018 2:51 PM 10/21/2018 1:59 PM * FULL RESUSCITATION Date Activated Date Inactivated Comments 04/25/2013 11:12 AM 04/27/2013 10:12 PM * FULL RESUSCITATION Date Activated Date Inactivated Comments 04/25/2013 6:49 AM 04/25/2013 11:12 AM * FULL RESUSCITATION Date Activated Date Inactivated Comments 04/25/2013 5:44 AM 04/25/2013 6:49 AM Care Teams Appeals Board Referee Relationship Specialty Start Date End Date Boyd Gardner MD [id number] [place] [id number] PCP - General Family Medicine 07/08/23
--- OUTSIDE RECORDS SUMMARY | 2024-12-18 08:00 | XMS_ITS | Patient Health Summary ---
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 POINT OF CARE (05/25/2011 3:57 PM CDT) [facility] BNP POCT 32.3 <=100 pg/ml [facility] Performed by [facility] Performed In ER [facility] BLOOD SPECIMEN / Unknown 05/25/2011 3:57 PM CDT 05/25/2011 4:58 PM CDT Narrative Authorizing Provider Result Rose Licea Er LAB - POINT OF CARE ORDERABLES Performing Organization Address City/[facility] Co de Phone Number [facility] [address] [place] [address] * MYOGLOBIN BLOOD - POINT OF CARE (05/25/2011 3:57 PM CDT) Pathologist [facility] Myoglobin POCT 26.4 <=170 ng/ml [facility] Performed by [facility] Performed In ER [facility] BLOOD SPECIMEN / Unknown 05/25/2011 3:57 PM CDT 05/25/2011 4:58 PM CDT Er LAB - POINT OF CARE ORDERABLES Performing Organization Address [facility] Co de Phone Number [facility] [address] [place] [address] * TROPONIN - POINT OF CARE (05/25/2011 3:57 PM CDT) Pathologist [facility] Troponin I POCT < 0.05 SEE BELOW ng/ml [facility] Comment: <0.05 Normal 0.05-0.39 Indeterminate >0.4 Abnormal Performed by [facility] Performed In ER [facility] BLOOD SPECIMEN / Unknown 05/25/2011 3:57 PM CDT 05/25/2011 4:58 PM CDT Er LAB - POINT OF CARE ORDERABLES Performing Organization Address [facility] Co de Phone Number [facility] [address] [place] [address] * CKMB - POINT OF CARE (05/25/2011 3:57 PM CDT) [facility] CK-MB POCT < 1.0 <=8.0 ng/ml [facility] Performed by [facility] Performed In ER [facility] BLOOD SPECIMEN / Unknown 05/25/2011 3:57 PM CDT 05/25/2011 4:58 PM CDT Er LAB - POINT OF CARE ORDERABLES Performing Organization Address [facility] Co de Phone Number [facility] [address] [place] [address] * TYPE + SCREEN PANEL (08/21/2009 1:45 PM CHILD CENTER ASSISTANT) Pathologist [facility] ABO Rh A POS SEE BELOW [facility] Comment: Weak D testing is not performed at [facility] Antibody Screen NEG [facility] Comment Antibody Screen: Specimen slightly hemolyzed [facility] BLOOD SPECIMEN / Unknown 08/21/2009 1:45 PM CHILD CENTER ASSISTANT 08/21/2009 1:57 PM CHILD CENTER ASSISTANT Yaquelin Hopkins DO LAB - BLOOD BANK ORD ERABLES [facility] [address] [place] [address] Care Teams Supervisor [employer] Fruit [employer] Farming Relationship Specialty Start Date End Date Boyd Gardner MD [address] [place] [address] PCP - General Family Medicine 07/08/23
--- OUTSIDE RECORDS SUMMARY | 2024-12-18 08:00 | XMS_ITS | Encounter Summary ---
Author Organization [facility] Healthcare Address [address] [place] [address] Care Team Providers Care Carbon Capture Power Plant Operator Name Role Phone Boyd Gardner MD Primary Care Provider [phone] Chrissy Gavin MD Unavailable [phone] Encounter Details Date Type Department Care Team (Late st Contact Info) Description 02/17/2024 Telephone [facility] [place] [address] [place] [id number] Boyd Gardner MD [address] [facility] [address] [address] Social History Tobacco Use Types Packs/Day Years Used Date Smoking Tobacco: Some Days Cigarettes 0.3 30 Smokeless Tobacco: Never Comments:only cocktails Alcohol Use Standard Drinks/Week Comments Yes 0 (1 standard drink = 0.6 oz pur e alcohol) occasionally AUDIT-C Answer Date Recorded Q1: How often do you have a drink containing alcohol? 4 or more times a week 12/03/2022 Q2: How many drinks containi ng alcohol do you have on a typical day when you are drinking? 1 or 2 Q3: How often do you have si x or more drinks on one occasion? Never 12/03/2022 PHQ-2 Answer Date Recorded PHQ-2 Total Score (If total score is 3 or more points, staff should administer the PHQ-9) 1 12/03/2022 Personal Safety Answer Date Recorded Have you ever been in or are you currently in a harmful physical or emotional relationship or is someone making you feel afraid or unsafe? 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
--- OUTSIDE RECORDS SUMMARY | 2024-12-18 08:00 | XMS_ITS | Referral Summary ---
Author Organization [facility] Address [address] [place] [address] Care Team Providers Care Manager Cafe Name Role Phone Boyd Gardner MD Primary Care Provider [phone] Chrissy Gavin MD Unavailable [phone] Allergies Active Allergy Reactions Criticality Noted Date [...] 09/09/2020 Assessment & Plan (09/09/2020 9:00 PM BEVEL FACE STONER AND POLISHER): PATIENT STATES SHE COULD NOT TOLERATE CYMBALTA IN THE PAST. PATIENT IS TO CONTINUE WITH ALPRAZOLAM NEEDED. Calculus of gallbladder and bile duct w/o cholecystitis or obstruction 10/18/2019 Overview (10/18/2019): Added automatically from request for surgery [id number] Anxiety 09/06/2019 Assessment & Plan (09/06/2019 10:15 PM BEVEL FACE STONER AND POLISHER): Patient has had multiple episodes of panic [...] meds Assessment & Plan (12/03/2022 8:58 PM BEVEL FACE STONER AND POLISHER): Blood Pressure Follow-up: Lifestyle modifications education provided [...] exercise. Assessment & Plan (09/06/2019 10:12 PM BEVEL FACE STONER AND POLISHER): Patient to continue with her blood pressure Meds. Also discussed using low-salt diet and beginning an exercise regimen. Assessment & Plan (12/07/2018 4:21 PM BEVEL FACE STONER AND POLISHER): Ora felt patient's lisinopril amlodipine and metoprolol. Patient advised to go on low-salt diet and to exercise to reduce blood pressure. Acute URI of multiple sites 12/07/2018 Assessment & Plan (12/07/2018 4:27 PM BEVEL FACE STONER AND POLISHER): The patient to take [id number] Claritin and Mucinex for the symptoms.if symptoms worsen patient is to call for antibiotic prescription. Recommended the flu vaccine but patient stays he has opted out of it because her parent always gets sick when she received the vaccine. Non-intractable vomiting with nausea 12/07/2018 Right upper quadrant abdominal pain 12/07/2018 Assessment & Plan (12/07/2018 4:20 PM BEVEL FACE STONER AND POLISHER): MR for patient to have [facility] and General surgery for possible [...] PM CDT): Assessment = Patient has a mcfp history of smoking. She smoked a pack in a couple of days. After this shortness of breath incident she states she strongly wants to quit. Plan - Nicotine patch prn - Warm handoff consulted Assessment & Plan (12/07/2018 4:24 PM BEVEL FACE STONER AND POLISHER): Discussed that tobacco cessation patient has tried [...] 11/30/2019 Assessment & Plan (09/06/2019 10:14 PM BEVEL FACE STONER AND POLISHER): Patient was seen in June in the emergency room for abdominal pain and was referred to general surgeon but due to illness of her son she neglected to keep that appointment. Will refer patient to general surgeon of her choice for possible cholecystectomy. Assessment & Plan (12/07/2018 4:29 PM BEVEL FACE STONER AND POLISHER): Reviewed ultrasound report from emergency room which indicated next cholelithiasis without cholecystitis there was mild gallbladder wall thickening. Calculus of gallbladder with out cholecystitis without obstruction 10/20/2018 11/30/2019 Tobacco use 06/06/2018 11/30/2019 Immunizations Immunization Administration Dates Next Due Influenza, Unspecified 06/25/2023(Deferr ed: Patient Refused),07/11/2022(Deferred: Patient Refused),06/11/2021(Deferred: Patient Refused),09/09/2020(Deferred: Patient Refused) Social History Tobacco Use Types Packs/Day Years [...] on file Legal Sex Female 11:48 PM BEVEL FACE STONER AND POLISHER Gender Identity Not on file Sexual Orientation [...] Date/Ti me COLONOSCOPY Screening for colon cancer Insurance [facility] Advance Directives For more information, please contact: [phone] * Full Code (Latest Code Status on File) Date Activated Date Inactivated Comments 07/22/2023 11:32 AM 07/25/2023 6:04 PM * Full Code Date Activated Date Inactivated Comments 07/17/2021 6:54 PM 07/20/2021 10:38 PM * Full Code Date Activated Date Inactivated Comments 10/27/2019 2:09 PM 10/29/2019 8:09 PM Care Teams Manager Cafe Relationship Specialty Start Date End Date Boyd Gardner MD PCP - General Family Medicine 12/07/18 Chrissy Gavin MD Consulting Physician Gastroenterology 07/20/21
--- OUTSIDE RECORDS SUMMARY | 2024-12-18 08:00 | XMS_ITS | Referral Summary ---
Author Organization [facility] Address [address] [place] [address] Care Team Providers Care Field Crop Farm Worker Name Role Phone Boyd Sarabia MD Primary Care Provider [phone] Allergies Active Allergy Reactions Criticality Noted Date [...] Take 10 mg by mouth. 07/25/2023 Active Social History Tobacco Use Types Packs/Day Years [...] harm? Never 11/19/2023 How often does anyone, ahmet maher family and friends, scream or curse at you? Never 11/19/2023 Sex and Gender Information Value Date Recorded Sex Assigned at Not on file Gender Identity Not on file Sexual Orientation Not on file Job Start Date Occupation Industry Not on file Not on file Not on file Last Filed Vital Signs Vital Sign Reading Time Taken Comments Blood Pressure 182/140 11/19/2023 11:28 AM ALLIGATOR HUNTER Pulse 73 11/19/2023 11:28 AM ALLIGATOR HUNTER Temperature 36.8 C (98.2 F) 11/18/2023 8:47 PM ALLIGATOR HUNTER Respiratory Rate 20 11/19/2023 11:28 AM ALLIGATOR HUNTER Oxygen Saturation 100% 11/19/2023 11:28 AM ALLIGATOR HUNTER Inhaled Oxygen Concentration - - Weight - - Height - - Body Mass Index - - Plan of Treatment Not on file Care Teams Field Crop Farm Worker Relationship Specialty Start Date End Date Boyd Sarabia MD [address] [place] [address] PCP - General Family Practice 11/18/23
--- OUTSIDE RECORDS SUMMARY | 2024-12-18 08:00 | XMS_ITS | Referral Summary ---
Author Organization [facility] Address [address] [place] [address] Care Team Providers Care Bobbin Trucker Name Role Phone Boyd Gardner MD Primary Care Provider [phone] Source Comments [facility],non-owned Affiliates and Associated Physician Practices is amultiple site organization consisting of ambulatory clinics and hospital sitesin [place], [place], [place] and [place]. This disclosure is being madepursuant to the Care Everywhere program and may not contain all information available regarding this patient. Last updated 18[facility] Allergies Active Allergy Reactions Criticality Noted Date [...] Anxiety 15 tablet 10/10/2022 Active HYDROcodone-acetamin ophen ([place]) 5-325 MG tabletIndications:Ar thralgia of right foot [...] 07/08/2023 12:13 PM CDT Plan of Treatment Not on file Procedures Procedure Name Priority Date/Time Associated Diagnosis Comments CYTOLOGY CERVICAL/VAG PAP SCREEN THIN PREP Routine 05/15/2013 3:44 PM CDT from Last 3 Months or Most Recently Relevant to Health Maintenance Results * CYTOLOGY CERVICAL/VAG SCREEN THIN PREP (05/15/2013 3:44 PM CDT) ThinPrep Pap See Scanned Report 05/29/2013 12:23 PM CDT [facility] Miscellaneous samples (specimen) PART OF UTERINE CERVIX / Unknown Collection / Unknown 05/15/2013 3:44 PM CDT 05/15/2013 4:07 PM CDT Ale Traylor MD LAB - PATHOLOGY/CYTO LOGY ORDERABLES [facility] [address] [place] [address] from Last 3 Months or Most Recently [...] 5:44 AM 04/25/2013 6:49 AM Care Teams Bobbin Trucker Relationship Specialty Start Date End Date Boyd Gardner MD [address] [place] [address] PCP - General Family Medicine 07/08/23
--- OUTSIDE RECORDS SUMMARY | 2024-12-18 08:01 | XMS_ITS | Clinical Summary ---
Author Organization [facility] Address [address] [place] [address] Phone Care Team Providers Care Fruit Sprayer Name Role Phone Boyd Gardner MD Primary Care Provider Un available Allergies Active Allergy Reactions Criticality Noted Date Comments Morphine And Codeine Anaphylaxis 04/02/2014 Penicillin G Anaphylaxis,Hives 05/30/2013 Hydrocodone-Acetaminophen Nausea 04/02/2014 Medications ondansetron (ZOFRAN ODT) 8 MG PO TAB-DISPERSE Take 1 Tab by mouth every 8 hours as needed for Nausea. 15 Tab 0 05/30/2013 Active HYDROcodone-dalila taminophen 10-325 MG PO TABS Take 1 Tab by mouth every 6 hours as needed for Pain. 20 Tab 0 06/03/2013 Active metoclopramide 5 MG PO TABS Take 2 Tabs by mouth 4 times daily as needed for Nausea. 10 Tab 0 06/03/2013 Active LORazepam 1 MG PO TABS Take 1 Tab by mouth every 8 hours as needed. 20 Tab 0 06/03/2013 Active ketorolac 10 MG PO TABS Take 1 Tab by mouth every 6 hours as needed for Pain. 20 Tab 0 04/02/2014 Active HYDROcodone-dalila taminophen 5-325 MG PO TABS Take 1 Tab by mouth every 6 hours as needed for Pain. 10 Tab = 04/02/2014 Active ALPRAZolam (XANAX) 0.5 MG TabletIndicatio ns:Anxiety Take 1 Tablet by mouth 2 times daily as needed for Anxiety for up to 15 doses. 15 Tablet 03/14/2024 Active Social History Tobacco Use Types Packs/Day Years Used Date Smoking Tobacco: Never Assessed Alcohol Use Standard Drinks/Week Comments No 0 (1 standard drink = 0.6 oz pur e alcohol) Comments No Sex and Gender Information Value Date Recorded Sex Assigned at Not on file Legal Sex Female 1:20 PM CDT Gender Identity Not on file Sexual Orientation Not on file Last Filed Vital Signs Vital Sign Reading Time Taken Comments Blood Pressure 167/79 03/14/2024 9:30 AM CDT Pulse 56 03/14/2024 9:30 AM CDT Temperature 36.4 C (97.6 F) 03/14/2024 7:45 AM CDT Respiratory Rate 19 03/14/2024 9:30 AM CDT Oxygen Saturation 94% 03/14/2024 9:30 AM CDT Inhaled Oxygen Concentration - - Weight 85.7 kg (189 lb) 03/14/2024 8:00 AM CDT Height 162.6 cm (5' 4 ) 03/14/2024 8:00 AM CDT Body Mass Index 32.44 03/14/2024 8:00 AM CDT Plan of Treatment Health Maintenance Due Date Last Done Comments Hepatitis C Virus (HCV) Screening 1971 Mammogram 1971 TdaP Immunization 1971 Hepatitis B Immunization (1 of 3 - 19+ 3-dose series) 1990 Pap Smear 1992 Cervical Cancer Screening (CCS) 2001 HPV/Cotest 2001 Colonoscopy 2016 Colorectal Cancer Screening 2016 Cologuard 2021 Immunochemical Fecal Occult Blood 2021 Pneumococcal Immunization (5 0+ years) (1 of 1 - PCV) 2021 Zoster Immunization (1 of 2) 2021 Influenza Immunization (#1) 2024 SARS-COV-2 Immunization ( - 2023- season) 2024 Respiratory Syncytial Virus (RSV) Immunization (Adult) (1 - 1-dose 75+ series) 2046 Meningococcal Immunization (ACWY) Aged Out No longer eligible based on patient's age to complete this topic Pneumococcal Immunization Combined Aged Out No longer eligible based on patient's age to complete this topic Rotavirus Immunization Aged Out No lo nger eligible based on patient's age to complete this topic Insurance [place] [id number] Care Teams Fruit Sprayer Relationship Specialty Start Date End Date Boyd Gardner MD PCP - General Family Medicine 03/14/24
== END 2024-12-18 08:50 | disposition home or self-care (01) ==
PROVIDERS: Emergency Medicine; Emergency Provider Emergency Medicine
DX: J20.5 Acute bronchitis due to respiratory syncytial virus (principal); J06.9 Acute upper respiratory infection, unspecified; Z20.822 Contact with and (suspected) exposure to COVID-19
CPT/HCPCS: 36415; 71045; 80048; 85025; 87637; 93005; 94640; 96374; 99284; A9270; J2060; J7512